=== PATIENT | female | born 1955 | race African-American/Black ===

== ENCOUNTER 2016-08-24 17:27 | Emergency (ER) | payer MEDICARE, MEDICAID ==
[2016-08-24] MEDS ORDERED: methylPREDNISolone 125 MG* 2 ML VIAL ONE (17:33)
[2016-08-24] MEDS ORDERED: Famotidine IV* 10 MG/ML 2 ML (20 mg) ONE (17:34)
[2016-08-24 18:36] LABS: Hematocrit 41 % (35-47); Hemoglobin 13.2 g/dl (12.0-16.0); Mean Corpuscular HGB Conc 32 g/dl (31-36); Mean Corpuscular Hemoglobin 27 pg (27-31); Mean Corpuscular Volume 84 fL (80-97); Mean Platelet Volume 9 um3 (7.4-10.4); Red Blood Count 4.91 10^6/ul (4.0-5.4); Red Cell Distribution Width 16 % (10.5-15); White Blood Count 10.3 10^3/ul (3.5-10.8)
[2016-08-24] MEDS ORDERED: Famotidine IV* 10 MG/ML 2 ML (20 mg) IV ONE (18:42)
[2016-08-24] MEDS ORDERED: methylPREDNISolone 125 MG* 2 ML VIAL IV ONE (18:42)
[2016-08-24] MEDS ORDERED: NS 0.9% 1000 ML* 1,000 ML IV SCH (18:45)
[2016-08-24 18:47] LABS: Albumin 4.5 g/dL (3.2-5.2); BUN/Creatinine Ratio 17.4 (8-20); C Reactive Protein 10.71 mg/L (< 5.00); Calcium 9.9 mg/dL (8.6-10.3); EGFR African American 85.7 (>60); EGFR Non-African American 66.6 (>60); Potassium 3.9 mmol/L (3.5-5.0); Total Bilirubin 0.5 mg/dL (0.2-1.0); Total Protein 7.5 g/dL (6.4-8.9)
[2016-08-24] MEDS ORDERED: Iohexol 300* (CONTRAST) 10 ML SDV IV ONE (19:32)
--- NOTE | 2016-08-24 19:55 | RAD ---
INDICATION: Facial swelling COMPARISON: None TECHNIQUE: Noncontrast axial source images were acquired from the skull base to the vertex. FINDINGS: Ventricles/sulci: The ventricles and cisterns are normal in size and configuration for age. Brain parenchyma: There is no focal parenchymal finding, evidence of intracranial mass, or intracranial mass effect. Intracranial hemorrhage:None. Extra-axial spaces: There are no abnormal extra axial fluid collections or evidence of extra-axial mass. Calvarium: There is no calvarial fracture or other calvarial abnormality. Scalp: There is no evidence of scalp or extracalvarial soft tissue abnormality. Paranasal sinuses/mastoid: The paranasal sinuses and mastoid air cells are clear. Other: None. IMPRESSION: NEGATIVE EXAMINATION
--- NOTE | 2016-08-24 19:58 | RAD ---
INDICATION: Facial swelling COMPARISON: None TECHNIQUE: Axial source images were acquired from the vertex of the mandible through the orbits. Coronal and sagittal reconstructed images were acquired. 75 mL of Omnipaque 300 was injected FINDINGS: Bones: There is no acute facial bone fracture. Orbits: The globes and intraconal structures appear intact. The optic nerves are symmetric. Extraocular muscles appear normal. There is no intraconal inflammatory change or retrobulbar mass.. Paranasal sinuses: The paranasal sinuses are clear. Brain: There are no acute abnormalities of the visualized brain parenchyma. Soft tissues: There is no localized fluid collection. There is mild edema in the anterior neck near the Vertex the mandible, in the maxillary regions, and over the eyelids. Other: None The remaining visualized soft tissue elements about the neck appear normal. IMPRESSION: MILD SOFT TISSUE EDEMA. NO LOCALIZED FLUID COLLECTION TO SUGGEST ABSCESS
[2016-08-24] MEDS ORDERED: predniSONE TAB* 20 MG PO ONE (20:30)
[2016-08-24] MEDS ORDERED: Famotidine TAB* 20 MG PO ONE (20:31)
[2016-08-24] MEDS ORDERED: diPHENhydraMINE PO* 50 MG PO ONE (20:33)
--- NOTE | 2016-08-24 20:37 | ED ---
Spencer Wright Janilya, scribed for Dario Sow MD on 08/24/16 at 1751 . Allergic Reaction/Systemic - HPI Summary HPI Summary: A 61 y/o female was BIB[facility] to [facility] for a sudden onset of allergic reaction that took place today at 1400. Last night, pt felt normal and this morning she woke up with a mild REED and slight erythema of forehead. She also states she felt unusually thirsty. She ate her normal breakfast today at 1300, but still felt hungry. So she ate a bagel and sausage leftovers from yesterday. Afterwards, pt noticed she started suddenly swelling. Pt denies difficulty swallowing, and other rashes or edema in other parts of her body. Pt had similar Sx twice before. The first time was around Halloween time. She used ice and alcohol, which relieved her condition. The second time was a week ago. However, it was not as concerning because the swelling was not as severe as it is today. Pt states she is not allergic to medication. En route, pt had around 115 bpm, and at one point, it increased to 135 bpm. She was also given Benadryl 50 mg. SHx pt has moved to [place] recently and is new to location. PMHx DM, heart problems, facial abscess a year ago, and 5 teeth removed last summer. - History of Current Complaint Chief Complaint: EDAllergicReaction Hx Obtained From: Patient, EMS Onset/Duration: Sudden Onset, Started hours ago, Still Present Timing: Constant Severity Initially: Moderate Severity Currently: Moderate Pain Intensity: 0 Character: Swelling Aggravating Factor(s): Nothing Alleviating Factor(s): Nothing - Allergies/Home Medications Allergies/Adverse Reactions: Allergies Allergy/AdvReac Type Severity Reaction Status Date / Time No Known Allergies Allergy Verified 08/24/16 17:31 PMH/Surg Hx/FS Hx/Imm Hx Endocrine/Hematology History: Reports: Hx Diabetes Cardiovascular History: Reports: Other Cardiovascular Problems/Disorders Infectious Disease History: No Infectious Disease History: Denies: Traveled Outside the [place] in Last 30 Days - Family History Known Family History: Positive: Cardiac Disease, Hypertension, Diabetes - Social History Alcohol Use: Occasionally Hx Substance Use: No Substance Use Type: Reports: None Hx Tobacco Use: No Do You Chew or Dip Tobacco: No Have You Chewed or Dipped Tobacco in the LAST YEAR: No Have You Smoked in the Last Year: No Household Exposure: No Review of Systems ENT: Negative - pt denies difficulty swallowing Positive: Edema - edema of face, but not other parts of body Skin: Other - erythema of forehead Negative: Rash Positive: Headache All Other Systems Reviewed And Are Negative: Yes Physical Exam Triage Information Reviewed: Yes Vital Signs On Initial Exam: Initial Vitals Temp Pulse Resp BP Pulse Ox 97 F 103 17 170/128 98 08/24/16 17:35 08/24/16 17:35 08/24/16 17:35 08/24/16 17:35 08/24/16 17:35 Vital Signs Reviewed: Yes Appearance: Positive: Well-Appearing, No Pain Distress Skin: Positive: Warm, Skin Color Reflects Adequate Perfusion, Dry Head/Face: Positive: Other - Edema of face and cheeks Eyes: Positive: EOMI, CÉSAR ENT: Positive: Normal ENT inspection, Pharynx normal Neck: Positive: Supple, Nontender Respiratory/Lung Sounds: Positive: Clear to Auscultation, Breath Sounds Present Cardiovascular: Positive: Tachycardia Abdomen Description: Positive: Nontender, Soft Bowel Sounds: Positive: Present Musculoskeletal: Positive: Normal, Strength/ROM Intact Neurological: Positive: Normal, Sensory/Motor Intact, Alert, Oriented to Person Place, Time Psychiatric: Positive: Affect/Mood Appropriate Diagnostics - Vital Signs Vital Signs Temp Pulse Resp BP Pulse Ox 08/24/16 17:35 97 F 103 17 170/128 98 - Laboratory Lab Results: Lab Results 08/24/16 08/24/16 08/24/16 Range/Units 17:41 17:41 17:41 WBC 10.3 (3.5-10.8) 10^3/ul RBC 4.91 (4.0-5.4) 10^6/ul Hgb 13.2 (12.0-16.0) g/dl Hct 41 (35-47) % MCV 84 (80-97) fL MCH 27 (27-31) pg MCHC 32 (31-36) g/dl RDW 16 H (10.5-15) % Plt Count 228 (150-450) 10^3/ul MPV 9 (7.4-10.4) um3 Neut % (Auto) 69.0 (38-83) % Lymph % (Auto) 21.4 L (25-47) % [place] % (Auto) 6.4 (1-9) % Eos % (Auto) 2.7 (0-6) % Baso % (Auto) 0.5 (0-2) % Absolute Neuts (auto) 7.1 (1.5-7.7) 10^3/ul Absolute Lymphs (auto) 2.2 (1.0-4.8) 10^3/ul Absolute Monos (auto) 0.7 (0-0.8) 10^3/ul Absolute Eos (auto) 0.3 (0-0.6) 10^3/ul Absolute Basos (auto) 0.1 (0-0.2) 10^3/ul Absolute Nucleated RBC 0 10^3/ul Nucleated RBC % 0 INR (Anticoag Therapy) 0.86 L (0.89-1.11) APTT 31.1 (26.0-36.3) seconds Sodium 133 (133-145) mmol/L Potassium 3.9 (3.5-5.0) mmol/L Chloride 100 L (101-111) mmol/L Carbon Dioxide 23 (22-32) mmol/L Anion Gap 10 (2-11) mmol/L BUN 15 (6-24) mg/dL Creatinine 0.86 (0.51-0.95) mg/dL Est GFR ( Amer) 85.7 (>60) Est GFR (Non-Af Amer) 66.6 (>60) BUN/Creatinine Ratio 17.4 (8-20) Glucose 160 H (70-100) mg/dL Calcium 9.9 (8.6-10.3) mg/dL Total Bilirubin 0.50 (0.2-1.0) mg/dL AST 63 H (13-39) U/L ALT 94 H (7-52) U/L Alkaline Phosphatase 113 H (34-104) U/L C-Reactive Protein 10.71 H (< 5.00) mg/L Total Protein 7.5 (6.4-8.9) g/dL Albumin 4.5 (3.2-5.2) g/dL Globulin 3.0 (2-4) g/dL Albumin/Globulin Ratio 1.5 (1-3) Result Diagrams: 08/24/16 17:41 08/24/16 17:41 Lab Statement: Any lab studies that have been ordered have been reviewed, and results considered in the medical decision making process. - CT brain CT Interpretation: No Acute Changes - IMPRESSION: neg exam CT Interpretation Completed By: Radiologist maxillofacial CT Interpretation: Positive (See Comments) - IMPRESSION: MILD SOFT TISSUE EDEMA. NO LOCALIZED FLUID COLLECTION TO SUGGEST ABSCESS CT Interpretation Completed By: Radiologist Allergic Reaction Course/Dx - Course Assessment/Plan: SWELLING IMPROVED IN ED. PATIENT TOLD TO STOP TAKING HER AMLODIPINE/BENAZIPRIL TABLET. DISCHARGE HOME STABLE. WILL RETURN IF WORSE. - Diagnoses Provider Diagnoses: Angioedema Discharge - Discharge Plan Condition: Stable Disposition: HOME Prescriptions: Famotidine TAB* [Pepcid TAB*] 20 mg PO BID PRN #8 tab PRN Reason: Allergy Symptoms predniSONE TAB* [Deltasone TAB*] 40 mg PO DAILY PRN #8 tab PRN Reason: Allergy Symptoms Patient Education Materials: Angioedema (ED) Referrals: [facility]FERR[facility] [Outside] Additional Instructions: FOLLOW UP WITH YOUR DOCTOR. TAKE THE PREDNISONE DIRECTED NEEDED. TAKE PEPCID 20MG TWICE A DAY NEEDED. TAKE BENADRYL 50MG EVERY 6 HOURS NEEDED. RETURN TO THE EMERGENCY DEPARTMENT FOR ANY WORSENING OF YOUR CONDITION OR QUESTIONS OR CONCERNS. The documentation as recorded by the Spencer jalloh Janilya accurately reflects the service I personally performed and the decisions made by me, Dario Sow MD.
[2016-08-24 21:11] VITALS: BP 170/98
== END 2016-08-24 21:11 | disposition home or self-care (01) ==
LOC: ED 17:27
DX: T78.3XXA Angioneurotic edema, initial encounter (principal); E11.9 Type 2 diabetes mellitus without complications
CPT/HCPCS: 36415; 70450; 70487; 80053; 85025; 85610; 85730; 86140; 96374; 96375; 99284; A9270-GY; J2930; J7512; Q9967